=== PATIENT | female | born 1970 | race Caucasian/White ===

== ENCOUNTER 2016-05-27 08:53 | Day surgery (SDC) | payer OTHER, BC ==
[~2016-05-27 08:53] MED LIST: ALDACTONE25 MG PO; ALEVE220 MG PO; ATORVASTATIN CA40 MG PO; COLACE100 MG PO; COMPAZINE5 MG PO; COZAAR100 MG PO; DOCUSATE SODIU100 MG PO; DULCOLAX10 MG PR; EPOGEN,PRO2000 UNITS IV; FLEXERIL5 MG PO; FUROSEMIDE40 MG PO; FUROSEMIDE80 MG PO; GLUCAGEN1 MG IM/SC; HEPARIN SO5000 UNITS SC; LEVEMIR100 UNIT/2 SC; LIPITOR10 MG PO; LOPRESSOR25 MG PO; LOPRESSOR50 MG PO; LOSARTAN POTASS25 MG PO; METOLAZONE2.5 MG PO; MILK OF MAGN PO; NOVOLIN,HU100 UNITS/ SC; NOVOLIN,HU100 UNITS1 SC; NOVOLOG 10100 UNITS/ SC; NOVOLOG PE100 UNITS/ SC; OXYCODONE HCL10 MG PO; OXYCODONE HCL5 MG PO; PANTOPRAZOLE SO40 MG PO; POLYETHYLENE GL17 GM PO; PREDNISONE10 MG PO; PREDNISONE5 MG PO; PROAIR HFA8.5 GM IH; PROTONIX40 MG PO; SORE THROAT LO1 EAC3 MM; SPIRONOLACTONE25 MG PO; TRAZODONE HCL50 MG PO; TYLENOL REGULA325 MG PO; ZOFRAN4 MG PO
[2016-05-27 09:18] LABS: POINT-OF-CARE METER ID UU13113696; POINT-OF-CARE USER ID HMLCJM07
[2016-05-27 10:15] LABS: METH RESISTANT S AUREUS PCR NEGATIVE (NEGATIVE); PROBE CHECK PASS; SPECIMEN PROCESSING CONTROL PASS
[2016-05-28] MEDS ORDERED: FLEET ENEMA-AD118 ML PR (13:56)
[2016-05-28] MEDS ORDERED: HEPARIN SO5000 UNITS SC (14:27)
[2016-05-28] MEDS ORDERED: HUMULIN 70100 UNIT/2 SC (14:28)
[2016-05-28] MEDS ORDERED: NOVOLOG PE100 UNITS/ SC (14:33)
== END 2016-05-27 11:22 ==
LOC: CATH 08:53
PROVIDERS: Surgery
PROC: 02HV33Z Insertion of Infusion Device into Superior Vena Cava, Percutaneous Approach (ICD-10-PCS; principal; 2016-05-27)
PROC: 0JPT33Z Removal of Infusion Device from Trunk Subcutaneous Tissue and Fascia, Percutaneous Approach (ICD-10-PCS; principal; 2016-05-27)
DX: T85.698A Other mechanical complication of other specified internal prosthetic devices, implants and grafts, initial encounter (principal); Y83.9 Surgical procedure, unspecified as the cause of abnormal reaction of the patient, or of later complication, without mention of misadventure at the time of the procedure; N18.6 End stage renal disease
CPT/HCPCS: 82948; 87641; J0690; J1644; J2250; J3010; S0020

== ENCOUNTER 2016-05-28 08:57 | Inpatient (IN) | payer OTHER, BC ==
[~2016-05-28] VITALS: Ht 167.6 cm; Wt 130.4 kg
[2016-05-28 10:24] LABS: HEMATOCRIT 25.4 % (36.0-46.0); MCH 27.5 PG (29.0-34.0); MCHC 30.7 G/DL (30.0-36.0); MCV 89.4 FL (83-99); MEAN PLAT.VOLUME 10.2 uM^3 (9.5-12.4); RBC DIS.WIDTH-CV 15.9 % (11.8-14.6); RBC DIS.WIDTH-SD 49.6 % (39-53); RED BLOOD COUNT 2.84 M/uL (3.80-5.20)
[2016-05-28 10:31] LABS: INTER. NORMALIZED RATIO 1.1; PROTHROMBIN TIME 10.7 (9.2-11.2); PTT 38.7 (25-32)
[2016-05-28 10:38] LABS: CHLORIDE 101 mEq/L (99-109); SODIUM 136 mEq/L (136-147)
[2016-05-28 10:40] LABS: GLUCOSE 177 mg/dL (70-99)
[2016-05-28 10:41] LABS: ANION GAP 9 MEQ/L (2-14)
[2016-05-28 10:42] LABS: TOTAL BILIRUBIN 0.3 mg/dL (0.0-1.0)
[2016-05-28 10:43] LABS: TROP-I INTERPRETATION NEGATIVE; TROPONIN-I < 0.01 ng/mL (0.0-0.30)
[2016-05-28 10:44] LABS: ALKALINE PHOSPHATASE 148 IU/L (3-129); GFR ESTIMATE (CALCULATED) 15 mL/min/
[2016-05-28 10:45] LABS: UREA NITROGEN (BUN) 19 mg/dL (9-23)
[2016-05-28 10:59] LABS: BASOPHIL COUNT 0.1 K/uL (0-0.1); EOSINOPHIL COUNT 0.2 K/uL (0-0.3); HEMATOLOGY COMMENT 1 SMEAR COMPATIBLE; IMMATURE GRANULOCYTE (%) 3.4 % (0.0-0.7); LYMPHOCYTE COUNT 1.5 K/uL (1.0-2.8); MONOCYTE (%) 7.3 % (3-12); MONOCYTE COUNT 0.9 K/uL (0-0.8); NEUTROPHIL (%) 74.4 % (45-76); NEUTROPHIL COUNT 8.7 K/uL (1.8-6.4); USER ID BLP
[2016-05-28 11:05] LABS: PLATELET COUNT 213 K/uL (156-360); WHITE BLOOD COUNT 11.7 K/uL (4.1-10.2)
[2016-05-28] MEDS ORDERED: FLEET ENEMA-AD118 ML PR (13:56)
[2016-05-28] MEDS ORDERED: HEPARIN SO5000 UNITS SC (14:27)
[2016-05-28] MEDS ORDERED: HUMULIN 70100 UNIT/2 SC (14:28)
[2016-05-28] MEDS ORDERED: NOVOLOG PE100 UNITS/ SC (14:33)
[2016-05-28 20:12] VITALS: BP 118/58
[2016-05-29] VITALS (15 sets, daily range): BP systolic 110–137; BP diastolic 54–61
[2016-05-29 08:13] LABS: ANION GAP 6 MEQ/L (2-14); CHLORIDE 103 MEQ/L (99-109); GFR ESTIMATE (CALCULATED) 21 mL/min/; POTASSIUM 4.2 MEQ/L (3.7-5.4); SAMPLE HEMOLYSIS CHECK 0; SAMPLE ICTERIC CHECK 0; SAMPLE LIPEMIA CHECK 0; SODIUM 139 MEQ/L (136-147); UREA NITROGEN (BUN) 11 mg/dL (9-23)
[2016-05-29 08:16] LABS: GLUCOSE 80 mg/dL (70-99)
[2016-05-29 08:21] LABS: EOSINOPHIL (%) 2.8 % (0-5); EOSINOPHIL COUNT 0.3 K/uL (0-0.3); HEMATOCRIT 21.2 % (36.0-46.0); IMMATURE GRANULOCYTE (%) 4.3 % (0.0-0.7); IMMATURE GRANULOCYTE COUNT 0.4 K/uL; MCH 27.5 PG (29.0-34.0); MCHC 30.2 G/DL (30.0-36.0); MCV 90.4 FL (83-99); MEAN PLAT.VOLUME 10.5 uM^3 (9.5-12.4); MONOCYTE (%) 10.9 % (3-12); NEUTROPHIL (%) 70.1 % (45-76); NEUTROPHIL COUNT 6.2 K/uL (1.8-6.4); NRBC (%) 0.3 /100 WBC (0-0); PLATELET COUNT 196 K/uL (156-360); RBC DIS.WIDTH-CV 16.9 % (11.8-14.6); RBC DIS.WIDTH-SD 54.6 % (39-53); RED BLOOD COUNT 2.33 M/uL (3.80-5.20); WHITE BLOOD COUNT 8.9 K/uL (4.1-10.2)
[2016-05-29 08:25] LABS: HEMATOLOGY COMMENT 1 SMEAR COMPATIBLE; PLAT.SUFFICIENCY ADEQUATE
[2016-05-29 12:09] LABS: METH RESISTANT S AUREUS PCR NEGATIVE (NEGATIVE); PROBE CHECK PASS; SPECIMEN PROCESSING CONTROL PASS
[2016-05-29 13:24] LABS: INFLUENZA A VIRAL ANTIGEN NEGATIVE; INFLUENZA B VIRAL ANTIGEN NEGATIVE
[2016-05-30 03:33] VITALS: BP 129/60
[2016-05-30 06:06] LABS: HEMATOCRIT 27.6 % (36.0-46.0); MCHC 30.8 G/DL (30.0-36.0); MCV 90.8 FL (83-99); MEAN PLAT.VOLUME 10.9 uM^3 (9.5-12.4); PLATELET COUNT 228 K/uL (156-360); RBC DIS.WIDTH-CV 16.4 % (11.8-14.6); RBC DIS.WIDTH-SD 53.4 % (39-53); WHITE BLOOD COUNT 10.2 K/uL (4.1-10.2)
[2016-05-30 06:12] LABS: RED BLOOD COUNT 3.04 M/uL (3.80-5.20)
[2016-05-30 06:24] LABS: ANION GAP 7 MEQ/L (2-14); CHLORIDE 103 MEQ/L (99-109); GFR ESTIMATE (CALCULATED) 15 mL/min/; GLUCOSE 121 mg/dL (70-99); SAMPLE HEMOLYSIS CHECK 0; SAMPLE ICTERIC CHECK 0; SAMPLE LIPEMIA CHECK 0; SODIUM 137 MEQ/L (136-147); UREA NITROGEN (BUN) 19 mg/dL (9-23)
[2016-05-30 07:07] LABS: EOSINOPHIL (%) 2.9 % (0-5); EOSINOPHIL COUNT 0.3 K/uL (0-0.3); IMMATURE GRANULOCYTE (%) 3.5 % (0.0-0.7); IMMATURE GRANULOCYTE COUNT 0.4 K/uL; MONOCYTE (%) 7.1 % (3-12); MONOCYTE COUNT 0.7 K/uL (0-0.8); NEUTROPHIL (%) 76.8 % (45-76); NEUTROPHIL COUNT 7.9 K/uL (1.8-6.4); NRBC (%) 0.2 /100 WBC (0-0)
[2016-05-30 09:21] LABS: HEMATOLOGY COMMENT 1 SMEAR COMPATIBLE; USER ID SDF
[2016-05-30 12:30] VITALS: BP 142/65
[2016-05-30 16:30] VITALS: BP 140/62
[2016-05-30 20:02] VITALS: BP 126/58
[2016-05-31] VITALS (7 sets, daily range): BP systolic 119–155; BP diastolic 57–71
[2016-05-31 08:10] LABS: INTERNAL CONTROL VALID? YES
[2016-06-01 04:00] VITALS: BP 148/71
[2016-06-01 07:29] VITALS: BP 155/71
[2016-06-01 11:17] LABS: HEMATOCRIT 31.5 % (36.0-46.0); MCH 27.8 PG (29.0-34.0); MCHC 30.8 G/DL (30.0-36.0); MCV 90.3 FL (83-99); MEAN PLAT.VOLUME 9.9 uM^3 (9.5-12.4); PLATELET COUNT 258 K/uL (156-360); RBC DIS.WIDTH-CV 16.6 % (11.8-14.6); RBC DIS.WIDTH-SD 54.1 % (39-53); RED BLOOD COUNT 3.49 M/uL (3.80-5.20); WHITE BLOOD COUNT 12.4 K/uL (4.1-10.2)
[2016-06-01 11:26] VITALS: BP 150/66
[2016-06-01 11:57] LABS: ALKALINE PHOSPHATASE 138 IU/L (3-129); ANION GAP 9 MEQ/L (2-14); CHLORIDE 101 MEQ/L (99-109); GLUCOSE 123 mg/dL (70-99); POTASSIUM 4.4 MEQ/L (3.7-5.4); SAMPLE HEMOLYSIS CHECK 0; SAMPLE ICTERIC CHECK 0; SAMPLE LIPEMIA CHECK 0; SODIUM 137 MEQ/L (136-147); TOTAL BILIRUBIN 0.3 MG/DL (0.0-1.0)
[2016-06-01 15:32] VITALS: BP 156/68
[2016-06-01 19:00] VITALS: BP 145/65
[2016-06-01 19:56] LABS: GFR ESTIMATE (CALCULATED) 17 mL/min/
[2016-06-01 20:05] LABS: UREA NITROGEN (BUN) 34 mg/dL (9-23)
[2016-06-01 23:02] VITALS: BP 166/71
[2016-06-02 03:20] VITALS: BP 170/74
[2016-06-02 07:36] LABS: HEMATOCRIT 31.8 % (36.0-46.0); MCH 27.3 PG (29.0-34.0); MCHC 30.2 G/DL (30.0-36.0); MCV 90.3 FL (83-99); MEAN PLAT.VOLUME 10.3 uM^3 (9.5-12.4); PLATELET COUNT 273 K/uL (156-360); RBC DIS.WIDTH-CV 16.6 % (11.8-14.6); RBC DIS.WIDTH-SD 53.8 % (39-53); RED BLOOD COUNT 3.52 M/uL (3.80-5.20); WHITE BLOOD COUNT 9.2 K/uL (4.1-10.2)
[2016-06-02 08:06] LABS: ANION GAP 10 MEQ/L (2-14); CHLORIDE 103 MEQ/L (99-109); GFR ESTIMATE (CALCULATED) 16 mL/min/; GLUCOSE 160 mg/dL (70-99); POTASSIUM 5.2 MEQ/L (3.7-5.4); SAMPLE HEMOLYSIS CHECK 0; SAMPLE ICTERIC CHECK 0; SAMPLE LIPEMIA CHECK 0; SODIUM 139 MEQ/L (136-147); UREA NITROGEN (BUN) 40 mg/dL (9-23)
[2016-06-02 08:16] LABS: EOSINOPHIL (%) 2.2 % (0-5); EOSINOPHIL COUNT 0.2 K/uL (0-0.3); IMMATURE GRANULOCYTE (%) 4.4 % (0.0-0.7); IMMATURE GRANULOCYTE COUNT 0.4 K/uL; LYMPHOCYTE COUNT 1.1 K/uL (1.0-2.8); MONOCYTE (%) 6.9 % (3-12); MONOCYTE COUNT 0.6 K/uL (0-0.8); NEUTROPHIL (%) 73.9 % (45-76); NEUTROPHIL COUNT 6.8 K/uL (1.8-6.4)
[2016-06-02 08:24] LABS: HEMATOLOGY COMMENT 1 SMEAR COMPATIBLE; USER ID CL
[2016-06-02 16:00] VITALS: BP 135/67
[2016-06-02 20:00] VITALS: BP 131/60
[2016-06-02 23:15] VITALS: BP 167/67
[2016-06-03 04:20] VITALS: BP 135/73
[2016-06-03 08:06] VITALS: BP 141/69
[2016-06-03 12:24] VITALS: BP 151/71
[2016-06-03] MEDS ORDERED: LEVOFLOXACIN500 MG PO (13:24)
[2016-06-03] MEDS ORDERED: DUONEB 2.5-0.5 M3 ML AEROSOL (13:24)
[2016-06-03] MEDS ORDERED: PREDNISONE10 MG PO (13:30)
[2016-06-03 17:03] VITALS: BP 161/58
== END 2016-06-03 17:34 | DRG 193 ==
LOC: EME → EDBD 08:57 → EME 08:57 → 2EAST 12:25 → EDOF 12:25 → 2EAST 18:37
PROVIDERS: Emergency Medicine; Hospitalist; Internal Medicine; Internal Medicine Nephrology
PROC: 5A1D60Z (ICD-10-PCS; 2016-05-28)
PROC: 5A09357 Assistance with Respiratory Ventilation, Less than 24 Consecutive Hours, Continuous Positive Airway Pressure (ICD-10-PCS; principal; 2016-05-29)
PROC: 30233N1 Transfusion of Nonautologous Red Blood Cells into Peripheral Vein, Percutaneous Approach (ICD-10-PCS; 2016-05-29)
DX: J15.9 Unspecified bacterial pneumonia (principal); Y95 Nosocomial condition; J96.21 Acute and chronic respiratory failure with hypoxia; I13.2 Hypertensive heart and chronic kidney disease with heart failure and with stage 5 chronic kidney disease, or end stage renal disease; E11.22 Type 2 diabetes mellitus with diabetic chronic kidney disease; N18.6 End stage renal disease; I50.9 Heart failure, unspecified; Z99.2 Dependence on renal dialysis; J45.31 Mild persistent asthma with (acute) exacerbation; D63.1 Anemia in chronic kidney disease; E66.01 Morbid (severe) obesity due to excess calories; Z68.42 Body mass index [BMI] 45.0-49.9, adult; E11.65 Type 2 diabetes mellitus with hyperglycemia; G47.33 Obstructive sleep apnea (adult) (pediatric); R59.0 Localized enlarged lymph nodes; Z91.19 Patient's noncompliance with other medical treatment and regimen
CPT/HCPCS: 71010; 71020; 71275; 80048; 80053; 82948; 84484; 85025; 85025 91; 85027; 85610; 85730; 86850; 86900; 86901; 86920; 87070; 87106; 87205; 87449; 87502; 87641; 93005; 94640; 94640 76; 94644; 94799; 97530 GO; 99202; 99281; 99285; J0690; J0692; J0881; J1644; J1815; J1940; J2250; J3010; J3370; J7050; J7512; P9016; S0020

== ENCOUNTER 2016-07-03 09:52 | Day surgery (SDC) | payer OTHER, BC ==
[~2016-07-03] VITALS: Ht 160 cm; Wt 136.2 kg
[~2016-07-03 09:52] MED LIST changes: +DUONEB 2.5-0.5 M3 ML AEROSOL; +FLEET ENEMA-AD118 ML PR; +FLEET MINERAL133 ML PR; +HUMULIN 70100 UNIT/2 SC; +HUMULIN N100 UNITS/ SC; +LEVOFLOXACIN500 MG PO; +MIRALAX17 GM PO; +MULTIVITAMINS1 EA10 PO; +NOVOLIN N100 UNITS/ SC; +PRILOSEC20 MG PO; +PROMETHAZINE HC25 M1 PO; +SENNA-S TABLET1 EACH PO; +TOPROL XL50 MG PO; +ZOLOFT50 MG PO
[2016-07-03 10:29] LABS: HEMATOCRIT 32.7 % (36.0-46.0); MCH 27.4 PG (29.0-34.0); MCHC 30.3 G/DL (30.0-36.0); MCV 90.6 FL (83-99); MEAN PLAT.VOLUME 12.1 uM^3 (9.5-12.4); RBC DIS.WIDTH-CV 16.3 % (11.8-14.6); RBC DIS.WIDTH-SD 53.3 % (39-53); RED BLOOD COUNT 3.61 M/uL (3.80-5.20); WHITE BLOOD COUNT 5.4 K/uL (4.1-10.2)
[2016-07-03 10:31] VITALS: BP 118/55
[2016-07-03 10:37] LABS: PLATELET COUNT 88 K/uL (156-360)
[2016-07-03 11:10] LABS: ANION GAP 7 MEQ/L (2-14); CHLORIDE 103 MEQ/L (99-109); POTASSIUM 4.2 MEQ/L (3.7-5.4); SAMPLE HEMOLYSIS CHECK 0; SAMPLE ICTERIC CHECK 0; SAMPLE LIPEMIA CHECK 0; SODIUM 140 MEQ/L (136-147)
[2016-07-03 11:15] LABS: GFR ESTIMATE (CALCULATED) 32 mL/min/; GLUCOSE 213 mg/dL (70-99); UREA NITROGEN (BUN) 23 mg/dL (9-23)
[2016-07-03 11:39] LABS: METH RESISTANT S AUREUS PCR NEGATIVE (NEGATIVE)
[2016-07-03 11:45] LABS: PROBE CHECK PASS; SPECIMEN PROCESSING CONTROL PASS
[2016-07-03 16:22] LABS: POINT-OF-CARE METER ID UU13113675
[2016-07-03 16:54] VITALS: BP 138/67
[2016-07-03 17:17] VITALS: BP 141/64
== END 2016-07-03 17:30 ==
LOC: SDC 09:52
PROVIDERS: Surgery
PROC: 03180ZD Bypass Left Brachial Artery to Upper Arm Vein, Open Approach (ICD-10-PCS; principal; 2016-07-03)
DX: N18.6 End stage renal disease (principal); Z99.2 Dependence on renal dialysis; I12.0 Hypertensive chronic kidney disease with stage 5 chronic kidney disease or end stage renal disease; E11.22 Type 2 diabetes mellitus with diabetic chronic kidney disease; J45.909 Unspecified asthma, uncomplicated; I50.9 Heart failure, unspecified; K21.9 Gastro-esophageal reflux disease without esophagitis
CPT/HCPCS: 80048; 82948; 85027; 87641; J1644; J2250; J2720; J3010

== ENCOUNTER 2016-07-16 19:09 | Inpatient (IN) | payer OTHER, BC ==
[~2016-07-16] VITALS: Ht 160 cm; Wt 115.9 kg
[2016-07-16 19:39] LABS: CARBON DIOXIDE (BICARBONATE) 33.3 MEQ/L (20-31)
[2016-07-16 19:41] LABS: EOSINOPHIL (%) 0.3 % (0-5); HEMATOCRIT 33.5 % (36.0-46.0); IMMATURE GRANULOCYTE (%) 0.7 % (0.0-0.7); IMMATURE GRANULOCYTE COUNT 0.8 K/uL; LYMPHOCYTE COUNT 0.6 K/uL (1.0-2.8); MCH 28.1 PG (29.0-34.0); MCV 90.5 FL (83-99); MEAN PLAT.VOLUME 11.1 uM^3 (9.5-12.4); MONOCYTE (%) 3.4 % (3-12); MONOCYTE COUNT 0.4 K/uL (0-0.8); NEUTROPHIL (%) 89.9 % (45-76); NEUTROPHIL COUNT 9.8 K/uL (1.8-6.4); PLATELET COUNT 181 K/uL (156-360); RBC DIS.WIDTH-SD 51.6 % (39-53); WHITE BLOOD COUNT 10.9 K/uL (4.1-10.2)
[2016-07-16 19:49] LABS: CHLORIDE 103 mEq/L (99-109); POTASSIUM 4.9 mEq/L (3.7-5.4); SODIUM 142 mEq/L (136-147)
[2016-07-16 19:53] LABS: TOTAL BILIRUBIN 0.5 mg/dL (0.0-1.0)
[2016-07-16 19:56] LABS: ALKALINE PHOSPHATASE 207 IU/L (3-129); GFR ESTIMATE (CALCULATED) 16 mL/min/; UREA NITROGEN (BUN) 34 mg/dL (9-23)
[2016-07-16 20:03] LABS: TROP-I INTERPRETATION NEGATIVE; TROPONIN-I 0.01 ng/mL (0.0-0.30)
[2016-07-16 20:10] LABS: D-DIMER ELISA 3.17 mg/L FEU (< 0.57)
[2016-07-16 20:26] LABS: GLUCOSE 259 mg/dL (70-99)
[2016-07-16 20:28] LABS: ANION GAP 13 MEQ/L (2-14)
[2016-07-16] MEDS ORDERED: LOPRESSOR50 MG PO (22:54)
[2016-07-16] MEDS ORDERED: PROAIR HFA8.5 GM IH (22:58)
[2016-07-16] MEDS ORDERED: ARTIFICIAL TEAR1510 BOTH EYES (22:59)
[2016-07-17] VITALS (19 sets, daily range): BP systolic 89–174; BP diastolic 47–76
[2016-07-17 00:48] LABS: BASE EXCESS -0.4 mEq/L (-3 to +3); BICARBONATE 26.6 mEq/L (22-26); CARBOXY HGB 2.5 % (0-5); METHEMOGLOBIN 1.5 % (0-1.5); PCO2 54 mm Hg (35-45); PO2 53 mm Hg (80-100)
[2016-07-17 00:49] LABS: COMMENTS - BLOOD GASES C+A+; DEVICE HHFNC; FI02 100 %; O2 FLOW 50 L/MIN; SITE RR; TOTAL RESP RATE 20 resp/min
[2016-07-17 01:31] LABS: METH RESISTANT S AUREUS PCR NEGATIVE (NEGATIVE)
[2016-07-17 01:33] LABS: PROBE CHECK PASS; SPECIMEN PROCESSING CONTROL PASS
[2016-07-17 01:56] LABS: POINT-OF-CARE METER ID UU13113731
[2016-07-17 02:01] LABS: INFLUENZA A VIRAL ANTIGEN NEGATIVE; INFLUENZA B VIRAL ANTIGEN NEGATIVE
[2016-07-17 05:47] LABS: HEMATOCRIT 32.5 % (36.0-46.0); MCHC 29.5 G/DL (30.0-36.0); MCV 91.3 FL (83-99); MEAN PLAT.VOLUME 11.8 uM^3 (9.5-12.4); NRBC (%) 0.2 /100 WBC (0-0); PLATELET COUNT 210 K/uL (156-360); RBC DIS.WIDTH-CV 16.2 % (11.8-14.6); RBC DIS.WIDTH-SD 53.5 % (39-53); RED BLOOD COUNT 3.56 M/uL (3.80-5.20); WHITE BLOOD COUNT 12.2 K/uL (4.1-10.2)
[2016-07-17 06:11] LABS: ANION GAP 12 MEQ/L (2-14); CHLORIDE 100 MEQ/L (99-109); GFR ESTIMATE (CALCULATED) 15 mL/min/; GLUCOSE 299 mg/dL (70-99); MAGNESIUM 2.1 mg/dl (1.3-2.7); POTASSIUM 5.5 MEQ/L (3.7-5.4); SAMPLE HEMOLYSIS CHECK 0; SAMPLE ICTERIC CHECK 0; SAMPLE LIPEMIA CHECK 0; SODIUM 139 MEQ/L (136-147); UREA NITROGEN (BUN) 40 mg/dL (9-23)
[2016-07-17 06:12] LABS: POINT-OF-CARE METER ID UU13113748
[2016-07-17 06:26] LABS: EOSINOPHIL (%) 0.1 % (0-5); IMMATURE GRANULOCYTE (%) 1.1 % (0.0-0.7); IMMATURE GRANULOCYTE COUNT 0.1 K/uL; LYMPHOCYTE COUNT 0.4 K/uL (1.0-2.8); MONOCYTE (%) 2.1 % (3-12); MONOCYTE COUNT 0.3 K/uL (0-0.8); NEUTROPHIL (%) 93.5 % (45-76); NEUTROPHIL COUNT 11.4 K/uL (1.8-6.4)
[2016-07-17 09:32] LABS: POINT-OF-CARE METER ID UU14174217
[2016-07-17 14:57] LABS: POINT-OF-CARE METER ID UU14174217
[2016-07-17 17:48] LABS: POINT-OF-CARE METER ID UU14174217
[2016-07-17 22:16] LABS: POINT-OF-CARE METER ID UU13113748; POINT-OF-CARE USER ID RADDRS44
[2016-07-18] VITALS (25 sets, daily range): BP systolic 75–145; BP diastolic 45–69
[2016-07-18 03:00] LABS: POINT-OF-CARE METER ID UU14174217; POINT-OF-CARE USER ID RADDRS44
[2016-07-18 06:00] LABS: HEMATOCRIT 29.1 % (36.0-46.0); MCH 28.3 PG (29.0-34.0); MCHC 31.3 G/DL (30.0-36.0); MCV 90.4 FL (83-99); MEAN PLAT.VOLUME 11.8 uM^3 (9.5-12.4); NRBC (%) 0.2 /100 WBC (0-0); PLATELET COUNT 211 K/uL (156-360); RBC DIS.WIDTH-CV 16.7 % (11.8-14.6); RBC DIS.WIDTH-SD 54.1 % (39-53); RED BLOOD COUNT 3.22 M/uL (3.80-5.20); WHITE BLOOD COUNT 9.3 K/uL (4.1-10.2)
[2016-07-18 06:09] LABS: POINT-OF-CARE METER ID UU14174217
[2016-07-18 06:38] LABS: ALKALINE PHOSPHATASE 154 IU/L (3-129); GLUCOSE 175 mg/dL (70-99); SAMPLE HEMOLYSIS CHECK 0; SAMPLE ICTERIC CHECK 0; SAMPLE LIPEMIA CHECK 0; TOTAL BILIRUBIN 0.5 MG/DL (0.0-1.0); UREA NITROGEN (BUN) 23 mg/dL (9-23)
[2016-07-18 06:44] LABS: GFR ESTIMATE (CALCULATED) 21 mL/min/
[2016-07-18 06:45] LABS: SODIUM 136 MEQ/L (136-147)
[2016-07-18 06:53] LABS: ANION GAP 10 MEQ/L (2-14); CHLORIDE 98 MEQ/L (99-109)
[2016-07-18 06:54] LABS: EOSINOPHIL (%) 1.8 % (0-5); EOSINOPHIL COUNT 0.2 K/uL (0-0.3); IMMATURE GRANULOCYTE COUNT 0.1 K/uL; LYMPHOCYTE COUNT 0.9 K/uL (1.0-2.8); MONOCYTE (%) 8.6 % (3-12); MONOCYTE COUNT 0.8 K/uL (0-0.8); NEUTROPHIL (%) 79.2 % (45-76); NEUTROPHIL COUNT 7.4 K/uL (1.8-6.4); POTASSIUM 3.9 MEQ/L (3.7-5.4)
[2016-07-18 09:34] LABS: POINT-OF-CARE METER ID UU14174217
[2016-07-18 18:05] LABS: POINT-OF-CARE METER ID UU14174217
[2016-07-18 22:19] LABS: POINT-OF-CARE METER ID UU14174217; POINT-OF-CARE USER ID RADDRS44
[2016-07-19] VITALS (20 sets, daily range): BP systolic 107–155; BP diastolic 52–77
[2016-07-19 08:18] LABS: POINT-OF-CARE METER ID UU14174217
[2016-07-19 12:29] LABS: POINT-OF-CARE METER ID UU13113748
[2016-07-19 16:19] LABS: POINT-OF-CARE METER ID UU13113748
[2016-07-20] VITALS (22 sets, daily range): BP systolic 122–151; BP diastolic 57–118
[2016-07-20 05:15] LABS: EOSINOPHIL (%) 0.1 % (0-5); HEMATOCRIT 30.4 % (36.0-46.0); IMMATURE GRANULOCYTE (%) 1.5 % (0.0-0.7); IMMATURE GRANULOCYTE COUNT 0.1 K/uL; LYMPHOCYTE COUNT 0.5 K/uL (1.0-2.8); MCH 26.5 PG (29.0-34.0); MCHC 30.3 G/DL (30.0-36.0); MCV 87.6 FL (83-99); MEAN PLAT.VOLUME 11.2 uM^3 (9.5-12.4); MONOCYTE (%) 3.3 % (3-12); MONOCYTE COUNT 0.3 K/uL (0-0.8); NEUTROPHIL (%) 88.9 % (45-76); NEUTROPHIL COUNT 7.2 K/uL (1.8-6.4); PLATELET COUNT 231 K/uL (156-360); RBC DIS.WIDTH-CV 15.9 % (11.8-14.6); RBC DIS.WIDTH-SD 50.9 % (39-53); RED BLOOD COUNT 3.47 M/uL (3.80-5.20); WHITE BLOOD COUNT 8.1 K/uL (4.1-10.2)
[2016-07-20 06:15] LABS: ANION GAP 11 MEQ/L (2-14); CHLORIDE 97 MEQ/L (99-109); GFR ESTIMATE (CALCULATED) 14 mL/min/; POTASSIUM 4.5 MEQ/L (3.7-5.4); SAMPLE HEMOLYSIS CHECK 0; SAMPLE ICTERIC CHECK 0; SAMPLE LIPEMIA CHECK 0; SODIUM 132 MEQ/L (136-147); UREA NITROGEN (BUN) 31 mg/dL (9-23)
[2016-07-20 06:19] LABS: GLUCOSE 416 mg/dL (70-99)
[2016-07-20 12:17] LABS: POINT-OF-CARE METER ID UU14174217
[2016-07-20 12:17] LABS: POINT-OF-CARE METER ID UU13113803
[2016-07-20 12:21] LABS: POINT-OF-CARE METER ID UU13113748; POINT-OF-CARE USER ID RADDRS44
[2016-07-20 12:38] LABS: Estimated Average Glucose 126 mg/dL (70-123)
[2016-07-20 13:05] LABS: POINT-OF-CARE METER ID UU13113731
[2016-07-20 13:17] LABS: ANION GAP 10 MEQ/L (2-14); CHLORIDE 96 MEQ/L (99-109); POTASSIUM 3.6 MEQ/L (3.7-5.4); SAMPLE HEMOLYSIS CHECK 0; SAMPLE ICTERIC CHECK 0; SAMPLE LIPEMIA CHECK 0; SODIUM 132 MEQ/L (136-147)
[2016-07-20 13:56] LABS: GFR ESTIMATE (CALCULATED) 13 mL/min/; UREA NITROGEN (BUN) 36 mg/dL (9-23)
[2016-07-20 14:00] LABS: GLUCOSE 417 mg/dL (70-99)
[2016-07-20 14:08] LABS: POINT-OF-CARE METER ID UU13113731
[2016-07-20 15:10] LABS: POINT-OF-CARE METER ID UU13113731
[2016-07-20 16:07] LABS: POINT-OF-CARE METER ID UU13113731
[2016-07-20 17:20] LABS: POINT-OF-CARE METER ID UU13113731
[2016-07-20 17:31] LABS: ANION GAP 14 MEQ/L (2-14); CHLORIDE 97 MEQ/L (99-109); GFR ESTIMATE (CALCULATED) 13 mL/min/; GLUCOSE 271 mg/dL (70-99); POTASSIUM 3.8 MEQ/L (3.7-5.4); SAMPLE HEMOLYSIS CHECK 0; SAMPLE ICTERIC CHECK 0; SAMPLE LIPEMIA CHECK 0; SODIUM 134 MEQ/L (136-147); UREA NITROGEN (BUN) 37 mg/dL (9-23)
[2016-07-20 18:10] LABS: POINT-OF-CARE METER ID UU13113731
[2016-07-20 19:03] LABS: POINT-OF-CARE METER ID UU14174217
[2016-07-20 20:19] LABS: POINT-OF-CARE METER ID UU14174217
[2016-07-20 20:59] LABS: ANION GAP 16 MEQ/L (2-14); CHLORIDE 99 MEQ/L (99-109); GFR ESTIMATE (CALCULATED) 12 mL/min/; GLUCOSE 220 mg/dL (70-99); POTASSIUM 3.8 MEQ/L (3.7-5.4); SAMPLE HEMOLYSIS CHECK 0; SAMPLE ICTERIC CHECK 0; SAMPLE LIPEMIA CHECK 0; SODIUM 136 MEQ/L (136-147); UREA NITROGEN (BUN) 40 mg/dL (9-23)
[2016-07-20 21:27] LABS: POINT-OF-CARE METER ID UU14174217
[2016-07-20 22:09] LABS: POINT-OF-CARE METER ID UU14174217
[2016-07-20 23:16] LABS: POINT-OF-CARE METER ID UU14174217
[2016-07-20 23:57] LABS: POINT-OF-CARE METER ID UU14174217; POINT-OF-CARE USER ID 609231305
[2016-07-21] VITALS (13 sets, daily range): BP systolic 90–161; BP diastolic 51–88
[2016-07-21 00:40] LABS: CHLORIDE 103 mEq/L (99-109); POTASSIUM 4.1 mEq/L (3.7-5.4); SODIUM 140 mEq/L (136-147)
[2016-07-21 00:42] LABS: GLUCOSE 151 mg/dL (70-99)
[2016-07-21 00:43] LABS: ANION GAP 14 MEQ/L (2-14)
[2016-07-21 00:45] LABS: GFR ESTIMATE (CALCULATED) 10 mL/min/
[2016-07-21 00:46] LABS: UREA NITROGEN (BUN) 44 mg/dL (9-23)
[2016-07-21 01:19] LABS: POINT-OF-CARE METER ID UU14162636; POINT-OF-CARE USER ID 609231305
[2016-07-21 02:19] LABS: POINT-OF-CARE METER ID UU14162636; POINT-OF-CARE USER ID 609231305
[2016-07-21 03:28] LABS: POINT-OF-CARE METER ID UU14162636; POINT-OF-CARE USER ID PHATLC
[2016-07-21 04:30] LABS: POINT-OF-CARE METER ID UU14162636
[2016-07-21 04:56] LABS: CHLORIDE 103 mEq/L (99-109); POTASSIUM 4.3 mEq/L (3.7-5.4); SODIUM 139 mEq/L (136-147)
[2016-07-21 04:58] LABS: GLUCOSE 131 mg/dL (70-99)
[2016-07-21 04:59] LABS: ANION GAP 13 MEQ/L (2-14)
[2016-07-21 05:02] LABS: GFR ESTIMATE (CALCULATED) 10 mL/min/
[2016-07-21 05:03] LABS: UREA NITROGEN (BUN) 46 mg/dL (9-23)
[2016-07-21 05:51] LABS: POINT-OF-CARE METER ID UU14162636
[2016-07-21 08:07] LABS: POINT-OF-CARE METER ID UU14174217
[2016-07-21 09:35] LABS: NRBC (%) 0.2 /100 WBC (0-0)
[2016-07-21 09:41] LABS: HEMATOCRIT 30.7 % (36.0-46.0); MCH 27.8 PG (29.0-34.0); MCHC 31.9 G/DL (30.0-36.0); MCV 87.2 FL (83-99); MEAN PLAT.VOLUME 11.2 uM^3 (9.5-12.4); PLATELET COUNT 286 K/uL (156-360); RBC DIS.WIDTH-SD 50.6 % (39-53); RED BLOOD COUNT 3.52 M/uL (3.80-5.20)
[2016-07-21 09:43] LABS: WHITE BLOOD COUNT 12.3 K/uL (4.1-10.2)
[2016-07-21 12:08] LABS: POINT-OF-CARE METER ID UU14174217
[2016-07-21 12:41] LABS: HBSG INDEX 0.21
[2016-07-21 16:11] LABS: POINT-OF-CARE METER ID UU14174217
[2016-07-21 18:10] LABS: POINT-OF-CARE METER ID UU14162636
[2016-07-21 21:50] LABS: POINT-OF-CARE METER ID UU14174217; POINT-OF-CARE USER ID PHATLC
[2016-07-22] VITALS (9 sets, daily range): BP systolic 92–149; BP diastolic 51–67
[2016-07-22 17:02] LABS: POINT-OF-CARE METER ID UU14162508
[2016-07-23 03:51] VITALS: BP 142/64
[2016-07-23 07:07] LABS: ANION GAP 13 MEQ/L (2-14); CHLORIDE 99 MEQ/L (99-109); GFR ESTIMATE (CALCULATED) 11 mL/min/; GLUCOSE 195 mg/dL (70-99); POTASSIUM 3.9 MEQ/L (3.7-5.4); SAMPLE HEMOLYSIS CHECK 0; SAMPLE ICTERIC CHECK 0; SAMPLE LIPEMIA CHECK 0; SODIUM 138 MEQ/L (136-147); UREA NITROGEN (BUN) 51 mg/dL (9-23)
[2016-07-23 07:40] LABS: HEMATOCRIT 35.4 % (36.0-46.0); MCH 27.8 PG (29.0-34.0); MCHC 31.9 G/DL (30.0-36.0); MEAN PLAT.VOLUME 10.3 uM^3 (9.5-12.4); PLATELET COUNT 249 K/uL (156-360); RBC DIS.WIDTH-CV 16.3 % (11.8-14.6); RBC DIS.WIDTH-SD 51.6 % (39-53); RED BLOOD COUNT 4.07 M/uL (3.80-5.20); WHITE BLOOD COUNT 12.6 K/uL (4.1-10.2)
[2016-07-23 08:09] VITALS: BP 150/65
[2016-07-23 12:31] VITALS: BP 118/62
[2016-07-23 12:38] LABS: POINT-OF-CARE METER ID UU14162508
[2016-07-23 15:22] VITALS: BP 130/63
[2016-07-23 16:34] LABS: POINT-OF-CARE METER ID UU14162508
[2016-07-23 20:00] VITALS: BP 131/76
[2016-07-23 21:33] LABS: POINT-OF-CARE METER ID UU14162508
[2016-07-23 23:40] VITALS: BP 110/56
[2016-07-24 04:20] VITALS: BP 118/57
[2016-07-24 07:00] LABS: POINT-OF-CARE METER ID UU14162508
[2016-07-24 07:58] VITALS: BP 142/56
[2016-07-24] MEDS ORDERED: NOVOLIN N100 UNITS/ SC (11:09)
[2016-07-24] MEDS ORDERED: AUGMENTIN500 MG PO (11:11)
[2016-07-24 11:57] LABS: POINT-OF-CARE METER ID UU14162508
[2016-07-24 12:28] VITALS: BP 139/67
== END 2016-07-24 13:16 | disposition home health service (06) | DRG 189 ==
LOC: EME 19:09 → 4WEST 22:24 → EDOF 22:24 → 4WEST 23:49 → 2EAST 07-22 16:41
PROVIDERS: Emergency Medicine; Hospitalist; Internal Medicine; Internal Medicine Nephrology; Obstetrics & Gynecology; Specialist
PROC: 5A1D60Z (ICD-10-PCS; principal; 2016-07-17)
DX: J96.01 Acute respiratory failure with hypoxia (principal); N18.6 End stage renal disease; J15.9 Unspecified bacterial pneumonia; J90 Pleural effusion, not elsewhere classified; E87.2 Acidosis; J44.0 Chronic obstructive pulmonary disease with (acute) lower respiratory infection; I12.0 Hypertensive chronic kidney disease with stage 5 chronic kidney disease or end stage renal disease; E11.65 Type 2 diabetes mellitus with hyperglycemia; E11.22 Type 2 diabetes mellitus with diabetic chronic kidney disease; Z99.2 Dependence on renal dialysis; Z99.81 Dependence on supplemental oxygen; E11.40 Type 2 diabetes mellitus with diabetic neuropathy, unspecified; J45.909 Unspecified asthma, uncomplicated; E66.01 Morbid (severe) obesity due to excess calories; D63.1 Anemia in chronic kidney disease; I13.0 Hypertensive heart and chronic kidney disease with heart failure and stage 1 through stage 4 chronic kidney disease, or unspecified chronic kidney disease; I50.33 Acute on chronic diastolic (congestive) heart failure
CPT/HCPCS: 36600; 71010; 71020; 78582; 80048; 80048 91; 80053; 80202; 82040; 82803; 82948; 83036; 83605; 83735; 83880; 84100; 84484; 85025; 85027; 85379; 87040; 87070; 87205; 87340; 87502; 87641; 93005; 93970; 94002; 94010; 94640; 94640 76; 94667; 94668; 94760; 94799; 97530 GO; 97530 GP; 99202; 99281; 99285; A9540; A9567; J1644; J1815; J1940; J2405; J2543; J2765; J2920; J2930; J3370; J7050; J7644

== ENCOUNTER 2016-09-18 11:55 | Day surgery (SDC) | payer OTHER ==
[~2016-09-18] VITALS: Ht 157.5 cm; Wt 115.2 kg
[~2016-09-18 11:55] MED LIST changes: +ARTIFICIAL TEAR1510 BOTH EYES; +AUGMENTIN500 MG PO; +DUONEB 2.5-0.5 M3 ML PEP; +LIPITOR40 MG PO; +OXYCODONE HCL E10 MG PO; +ZANTAC150 MG PO; +[UNRECOGNIZED DRUG - OTHER] PO
[2016-09-18 13:04] LABS: POINT-OF-CARE METER ID UU13113696
[2016-09-18 14:16] LABS: METH RESISTANT S AUREUS PCR NEGATIVE (NEGATIVE)
[2016-09-18 14:18] LABS: PROBE CHECK PASS; SPECIMEN PROCESSING CONTROL PASS
== END 2016-09-18 14:30 | disposition home or self-care (01) ==
LOC: CATH 11:55
PROVIDERS: Surgery
PROC: 057Y3ZZ Dilation of Upper Vein, Percutaneous Approach (ICD-10-PCS; principal; 2016-09-18)
DX: T82.858A Stenosis of other vascular prosthetic devices, implants and grafts, initial encounter (principal); Y83.2 Surgical operation with anastomosis, bypass or graft as the cause of abnormal reaction of the patient, or of later complication, without mention of misadventure at the time of the procedure; I12.0 Hypertensive chronic kidney disease with stage 5 chronic kidney disease or end stage renal disease; E11.22 Type 2 diabetes mellitus with diabetic chronic kidney disease; N18.6 End stage renal disease; Z99.2 Dependence on renal dialysis; H54.8 Legal blindness, as defined in USA; Z88.9 Allergy status to unspecified drugs, medicaments and biological substances; D63.1 Anemia in chronic kidney disease; Z79.4 Long term (current) use of insulin
CPT/HCPCS: 82948; 87641; C1725; C1769; C1894; J0583; J1644; J2250; J3010; J7050

== ENCOUNTER 2016-12-02 08:07 | Day surgery (SDC) | payer OTHER ==
[~2016-12-02] VITALS: Ht 161.3 cm; Wt 128.0 kg
[~2016-12-02 08:07] MED LIST changes: +GABAPENTIN300 MG PO; +NOVOLOG MI100 UNIT/4 SC; +OMEPRAZOLE20 M2 PO; +RENVELA800 MG PO
[2016-12-02 09:05] LABS: POINT-OF-CARE METER ID UU13113696
[2016-12-02 10:15] LABS: METH RESISTANT S AUREUS PCR NEGATIVE (NEGATIVE); PROBE CHECK PASS; SPECIMEN PROCESSING CONTROL PASS
== END 2016-12-02 11:07 | disposition home or self-care (01) ==
LOC: CATH 08:07
PROVIDERS: Surgery
DX: T82.858A Stenosis of other vascular prosthetic devices, implants and grafts, initial encounter (principal); I13.2 Hypertensive heart and chronic kidney disease with heart failure and with stage 5 chronic kidney disease, or end stage renal disease; E11.22 Type 2 diabetes mellitus with diabetic chronic kidney disease; N18.6 End stage renal disease; I50.9 Heart failure, unspecified; Z99.2 Dependence on renal dialysis; D64.9 Anemia, unspecified; H54.8 Legal blindness, as defined in USA; Z79.4 Long term (current) use of insulin; Z99.81 Dependence on supplemental oxygen; Z99.3 Dependence on wheelchair
CPT/HCPCS: 82948; 87641; C1725; C1769; C1894; J0583; J1644; J2250; J3010; J7050

== ENCOUNTER → 2017-01-20 | Outpatient (CLI) | payer OTHER | END | disposition home or self-care (01) | LOC: AMB 01-15 12:30 | PROC: 0JPT0XZ Removal of Tunneled Vascular Access Device from Trunk Subcutaneous Tissue and Fascia, Open Approach (ICD-10-PCS; principal; 2017-01-20) | DX: N18.6 End stage renal disease (principal); Z99.2 Dependence on renal dialysis ==

== ENCOUNTER 2017-05-21 11:29 | Day surgery (SDC) | payer OTHER | END 2017-05-21 13:55 | disposition home or self-care (01) | LOC: CATH 11:29 | PROVIDERS: Surgery | PROC: 057Y3ZZ Dilation of Upper Vein, Percutaneous Approach (ICD-10-PCS; principal; 2017-05-21) | DX: T82.858A Stenosis of other vascular prosthetic devices, implants and grafts, initial encounter (principal); I12.0 Hypertensive chronic kidney disease with stage 5 chronic kidney disease or end stage renal disease; E11.22 Type 2 diabetes mellitus with diabetic chronic kidney disease; N18.6 End stage renal disease; Z99.2 Dependence on renal dialysis; I25.10 Atherosclerotic heart disease of native coronary artery without angina pectoris; D64.9 Anemia, unspecified; Z79.4 Long term (current) use of insulin | CPT/HCPCS: 82948; 87641; C1725; C1769; C1894; J0583; J2250; J3010 ==

== ENCOUNTER 2017-07-09 12:25 | Day surgery (SDC) | payer OTHER ==
[~2017-07-09] VITALS: Ht 160 cm; Wt 132.0 kg
[~2017-07-09 12:25] MED LIST changes: +CALCIUM ACETAT667 MG PO; +LYRICA25 MG PO; +METOPROLOL TART25 MG PO
== END 2017-07-09 14:40 | disposition home or self-care (01) ==
LOC: CATH 12:25
PROVIDERS: Surgery
DX: T82.858A Stenosis of other vascular prosthetic devices, implants and grafts, initial encounter (principal); Y83.2 Surgical operation with anastomosis, bypass or graft as the cause of abnormal reaction of the patient, or of later complication, without mention of misadventure at the time of the procedure; I12.0 Hypertensive chronic kidney disease with stage 5 chronic kidney disease or end stage renal disease; N18.6 End stage renal disease; Z99.2 Dependence on renal dialysis; D64.9 Anemia, unspecified; I25.10 Atherosclerotic heart disease of native coronary artery without angina pectoris; H54.8 Legal blindness, as defined in USA
CPT/HCPCS: 82948; 87641; C1725; C1769; C1894; J0583; J2250; J3010

== ENCOUNTER 2017-11-12 07:53 | Inpatient (IN) | payer OTHER ==
[~2017-11-12] VITALS: Ht 160 cm; Wt 151.2 kg
[2017-11-12] VITALS (7 sets, daily range): BP systolic 113–173; BP diastolic 59–89
[~2017-11-12 07:53] MED LIST changes: +ZOLOFT100 MG PO; -ZOLOFT50 MG PO
[2017-11-12 08:23] LABS: HEMATOCRIT 30.1 % (36.0-46.0); HEMOGLOBIN 8.9 G/DL (11.9-15.5); MCH 32.2 PG (29.0-34.0); MCHC 29.6 G/DL (30.0-36.0); MCV 109.1 FL (83-99); NRBC (%) 0.2 /100 WBC (0-0); PLATELET COUNT 83 K/uL (156-360); RBC DIS.WIDTH-CV 19.4 % (11.8-14.6); RED BLOOD COUNT 2.76 M/uL (3.80-5.20); WHITE BLOOD COUNT 8.4 K/uL (4.1-10.2)
[2017-11-12 08:30] LABS: INTER. NORMALIZED RATIO 1.1
[2017-11-12 08:32] LABS: PTT 30.3 SEC (25-37)
[2017-11-12 08:33] LABS: SITE RR
[2017-11-12 08:34] LABS: COMMENTS - BLOOD GASES A+C+; DEVICE 980 VENTILATOR; FI02 100 %; MECHANICAL RATE 20 resp/min; MODE AC-20; PCO2 52 mm Hg (35-45); PEEP 5 CM/H20; TIDAL VOLUME 500 ML; TOTAL RESP RATE 20 resp/min; pH 7.29 (7.35-7.45)
[2017-11-12 08:35] LABS: BASE EXCESS -1.9 mEq/L (-3 to +3); CARBOXY HGB 0 % (0-5); METHEMOGLOBIN 1.1 % (0-1.5); O2 SATURATION (CALCULATED) 94.8 % (95-99); PO2 385 mm Hg (80-100)
[2017-11-12 08:35] LABS: AMYLASE 38 IU/L (1-118); CHLORIDE 104 mEq/L (99-109); SODIUM 142 mEq/L (136-147)
[2017-11-12 09:16] LABS: ABS NEUTROPHIL COUNT 6.7; ANISOCYTOSIS 2+; BAND NEUTROPHILS 0.9 % (0-8.0); BASOPHILS 0.9 %; BURR CELLS 2+; EOSINOPHIL ABS CT 0.4; EOSINOPHILS 4.3 % (0-5.0); LYMPHOCYTES 8.7 % (15.0-45.0); MACROCYTES 1+; MONOCYTES 5.2 % (0-9.0); MYELOCYTES 0.9 %; OVALOCYTES 2+; PLAT.SUFFICIENCY DECREASED; POIKILOCYTOSIS 3+; SEG.NEUTROPHILS 79.1 % (46.0-76.0); SMUDGE CELLS 3.5
[2017-11-12 09:23] LABS: TROP-I INTERPRETATION NEGATIVE; TROPONIN-I 0.01 ng/mL (0.0-0.30)
[2017-11-12 09:41] LABS: QUANTITATIVE HCG < 4.0 MIU/ML
[2017-11-12 09:49] LABS: CREATININE 8.1 MG/DL (0.6-1.3); GFR ESTIMATE (CALCULATED) 6 mL/min/; GLUCOSE 273 mg/dL (70-99); LIPASE 48 U/L (1.0-51.0); SERUM ETHYL ALCOHOL < 10 mg/dL; UREA NITROGEN (BUN) 88 mg/dL (9-23)
[2017-11-12 09:50] LABS: POTASSIUM 6.8 MEQ/L (3.7-5.4)
[2017-11-12 12:06] LABS: COMMENTS - BLOOD GASES NAC+; DEVICE PB 840; FI02 50 %; MECHANICAL RATE 24 resp/min; MODE AC; PEEP 5 CM/H20; SITE RR; TIDAL VOLUME 400 ML; TOTAL RESP RATE 24 resp/min; pH 7.31 (7.35-7.45)
[2017-11-12 12:07] LABS: BICARBONATE 26.2 mEq/L (22-26); CARBOXY HGB 0 % (0-5); METHEMOGLOBIN 0 % (0-1.5); O2 SATURATION (CALCULATED) 89.4 % (95-99); PCO2 52 mm Hg (35-45); PO2 68 mm Hg (80-100)
[2017-11-12 12:08] LABS: BASE EXCESS -0.4 mEq/L (-3 to +3)
[2017-11-12 12:48] LABS: TROP-I INTERPRETATION NEGATIVE; TROPONIN-I 0.02 ng/mL (0.0-0.30)
[2017-11-12 12:54] LABS: ALBUMIN 3.3 G/DL (3.2-4.8); ALKALINE PHOSPHATASE 130 IU/L (3-129); ALT (GPT) 29 IU/L (3-49); AST (GOT) 34 IU/L (2-34); CHLORIDE 105 MEQ/L (99-109); CREATINE KINASE 37 IU/L (1-294); CREATININE 7.9 MG/DL (0.6-1.3); GFR ESTIMATE (CALCULATED) 6 mL/min/; GLUCOSE 255 mg/dL (70-99); HIGH-SENS C-REACTIVE PROTEIN 7.77 MG/DL (0.02-0.20); SODIUM 146 MEQ/L (136-147); TOTAL BILIRUBIN 0.6 MG/DL (0.0-1.0); TOTAL PROTEIN 6.4 G/DL (6.4-8.3); TRIGLYCERIDES 51 MG/DL (Normal: <150); UREA NITROGEN (BUN) 83 mg/dL (9-23)
[2017-11-12 12:59] LABS: POTASSIUM 6.7 MEQ/L (3.7-5.4)
[2017-11-12 18:54] LABS: CHLORIDE 93 MEQ/L (99-109); CREATININE 3.8 MG/DL (0.6-1.3); GFR ESTIMATE (CALCULATED) 14 mL/min/; GLUCOSE 187 mg/dL (70-99); POTASSIUM 4.7 MEQ/L (3.7-5.4); SODIUM 137 MEQ/L (136-147); UREA NITROGEN (BUN) 38 mg/dL (9-23)
[2017-11-12 19:49] LABS: COMMENTS - BLOOD GASES C+; DEVICE VENT; FI02 60 %; MECHANICAL RATE 24 resp/min; MODE A/C; PEEP 5 CM/H20; TIDAL VOLUME 400 ML; TOTAL RESP RATE 24 resp/min
[2017-11-12 19:50] LABS: BICARBONATE 29.2 mEq/L (22-26); METHEMOGLOBIN 0.3 % (0-1.5); PCO2 46 mm Hg (35-45); PO2 165 mm Hg (80-100); pH 7.41 (7.35-7.45)
[2017-11-13 01:55] LABS: COMMENTS - BLOOD GASES C+; DEVICE VENT; FI02 50 %
[2017-11-13 01:56] LABS: BASE EXCESS 1.1 mEq/L (-3 to +3); BICARBONATE 27.1 mEq/L (22-26); CARBOXY HGB 0 % (0-5); MECHANICAL RATE 24 resp/min; METHEMOGLOBIN 0.2 % (0-1.5); MODE A/C; PCO2 49 mm Hg (35-45); PEEP 5 CM/H20; PO2 52 mm Hg (80-100); TIDAL VOLUME 400 ML; TOTAL RESP RATE 24 resp/min; pH 7.35 (7.35-7.45)
[2017-11-13 05:40] LABS: BASOPHIL (%) 0.2 % (0-1); EOSINOPHIL (%) 0.1 % (0-5); HEMATOCRIT 28.5 % (36.0-46.0); IMMATURE GRANULOCYTE (%) 0.9 % (0.0-0.7); LYMPHOCYTE (%) 3.1 % (15-42); LYMPHOCYTE COUNT 0.3 K/uL (1.0-2.8); MCH 31.7 PG (29.0-34.0); MCHC 31.6 G/DL (30.0-36.0); MONOCYTE (%) 0.6 % (3-12); MONOCYTE COUNT 0.1 K/uL (0-0.8); NEUTROPHIL (%) 95.1 % (45-76); NEUTROPHIL COUNT 8.8 K/uL (1.8-6.4); PLATELET COUNT 62 K/uL (156-360); RBC DIS.WIDTH-CV 18.9 % (11.8-14.6); RBC DIS.WIDTH-SD 70.9 % (39-53); RED BLOOD COUNT 2.84 M/uL (3.80-5.20); WHITE BLOOD COUNT 9.3 K/uL (4.1-10.2)
[2017-11-13 05:41] LABS: MCV 100.4 FL (83-99)
[2017-11-13 05:54] LABS: CHLORIDE 96 MEQ/L (99-109); GFR ESTIMATE (CALCULATED) 10 mL/min/; GLUCOSE 258 mg/dL (70-99); MAGNESIUM 1.9 mg/dl (1.3-2.7); PHOSPHORUS 5.1 mg/dL (2.5-4.9); POTASSIUM 4.6 MEQ/L (3.7-5.4); SODIUM 137 MEQ/L (136-147); UREA NITROGEN (BUN) 47 mg/dL (9-23)
[2017-11-13 06:00] LABS: CREATININE 4.8 MG/DL (0.6-1.3)
[2017-11-13 08:02] VITALS: BP 101/55
[2017-11-13 09:02] LABS: BICARBONATE 24.8 mEq/L (22-26); CARBOXY HGB 0 % (0-5); METHEMOGLOBIN 0 % (0-1.5); PCO2 41 mm Hg (35-45); PO2 72 mm Hg (80-100); pH 7.39 (7.35-7.45)
[2017-11-13 09:03] LABS: BASE EXCESS -0.2 mEq/L (-3 to +3); COMMENTS - BLOOD GASES C+; DEVICE 980; FI02 70 %; MECHANICAL RATE 24 resp/min; MODE AC; PEEP 5 CM/H20; SITE ALINE; TIDAL VOLUME 400 ML; TOTAL RESP RATE 25 resp/min
[2017-11-13 12:11] LABS: ALBUMIN 3.1 G/DL (3.2-4.8); ALKALINE PHOSPHATASE 126 IU/L (3-129); ALT (GPT) 25 IU/L (3-49); AST (GOT) 21 IU/L (2-34); DIRECT BILIRUBIN 0.2 mg/dL (0.0-0.3); TOTAL PROTEIN 6.1 G/DL (6.4-8.3)
[2017-11-13 12:11] LABS: VANCOMYCIN, TROUGH 16.6 MCG/ML (10-20)
[2017-11-13 12:12] LABS: TOTAL BILIRUBIN 0.4 MG/DL (0.0-1.0)
[2017-11-13] MEDS ORDERED: ESOMEPRAZOLE MA40 MG PO (14:34)
[2017-11-13] MEDS ORDERED: NOVOLIN,HU100 UNITS/ SC (14:38)
[2017-11-13] MEDS ORDERED: ADVAIR 100/501 DISK IH ×2 (14:39→14:43)
[2017-11-13] MEDS ORDERED: ZOFRAN4 MG PO (14:40)
[2017-11-13] MEDS ORDERED: MIDODRINE HCL5 MG PO (14:41)
[2017-11-13] MEDS ORDERED: HYDROCODON-ACE1 EAC8 PO (14:42)
[2017-11-13] MEDS ORDERED: LOPERAMIDE2 M1 PO (14:44)
[2017-11-13] MEDS ORDERED: MIRCERA SC (14:45)
[2017-11-13] MEDS ORDERED: COMPAZINE5 MG PO (14:46)
[2017-11-13] MEDS ORDERED: VENOFER100 MG/5 M IV (14:47)
[2017-11-13 16:03] VITALS: BP 114/59
[2017-11-13 18:57] LABS: CHLORIDE 97 MEQ/L (99-109); GLUCOSE 165 mg/dL (70-99); SODIUM 139 MEQ/L (136-147)
[2017-11-13 19:11] LABS: CREATININE 2.5 MG/DL (0.6-1.3); GFR ESTIMATE (CALCULATED) 22 mL/min/; POTASSIUM 3.5 MEQ/L (3.7-5.4); UREA NITROGEN (BUN) 19 mg/dL (9-23)
[2017-11-14] VITALS (12 sets, daily range): BP systolic 93–146; BP diastolic 32–96
[2017-11-14 09:25] LABS: BASOPHIL (%) 0.2 % (0-1); BASOPHIL COUNT 0.1 K/uL (0-0.1); EOSINOPHIL (%) 0 % (0-5); IMMATURE GRANULOCYTE (%) 1.3 % (0.0-0.7); LYMPHOCYTE (%) 1.2 % (15-42); LYMPHOCYTE COUNT 0.4 K/uL (1.0-2.8); MONOCYTE (%) 7.3 % (3-12); MONOCYTE COUNT 2.2 K/uL (0-0.8); NEUTROPHIL COUNT 27.5 K/uL (1.8-6.4)
[2017-11-14 09:42] LABS: INTER. NORMALIZED RATIO 1.2
[2017-11-14 09:45] LABS: PTT 30.8 SEC (25-37)
[2017-11-14 09:57] LABS: ALBUMIN 3.9 G/DL (3.2-4.8); ALKALINE PHOSPHATASE 119 IU/L (3-129); ALT (GPT) 27 IU/L (3-49); AST (GOT) 28 IU/L (2-34); CHLORIDE 98 MEQ/L (99-109); HEMATOCRIT 32.5 % (36.0-46.0); HEMOGLOBIN 9.9 G/DL (11.9-15.5); MCH 31.6 PG (29.0-34.0); MCHC 30.5 G/DL (30.0-36.0); MCV 103.8 FL (83-99); NRBC (%) 0.1 /100 WBC (0-0); PLATELET COUNT 119 K/uL (156-360); RBC DIS.WIDTH-CV 19.7 % (11.8-14.6); RBC DIS.WIDTH-SD 73.8 % (39-53); RED BLOOD COUNT 3.13 M/uL (3.80-5.20); SODIUM 141 MEQ/L (136-147); TOTAL PROTEIN 6.8 G/DL (6.4-8.3)
[2017-11-14 09:58] LABS: WHITE BLOOD COUNT 30.6 K/uL (4.1-10.2)
[2017-11-14 09:59] LABS: CREATININE 3.6 MG/DL (0.6-1.3); GFR ESTIMATE (CALCULATED) 15 mL/min/; GLUCOSE 255 mg/dL (70-99); POTASSIUM 4.3 MEQ/L (3.7-5.4); TOTAL BILIRUBIN 0.7 MG/DL (0.0-1.0); UREA NITROGEN (BUN) 30 mg/dL (9-23)
[2017-11-15] VITALS (9 sets, daily range): BP systolic 121–159; BP diastolic 45–78
[2017-11-15 07:58] LABS: BASOPHIL (%) 0.1 % (0-1); EOSINOPHIL (%) 0 % (0-5); HEMOGLOBIN 9.7 G/DL (11.9-15.5); IMMATURE GRANULOCYTE (%) 2.6 % (0.0-0.7); LYMPHOCYTE (%) 1.9 % (15-42); LYMPHOCYTE COUNT 0.4 K/uL (1.0-2.8); MCH 31.3 PG (29.0-34.0); MCHC 30.3 G/DL (30.0-36.0); MCV 103.2 FL (83-99); MONOCYTE (%) 2.8 % (3-12); MONOCYTE COUNT 0.6 K/uL (0-0.8); NEUTROPHIL (%) 92.6 % (45-76); NRBC (%) 0.2 /100 WBC (0-0); PLATELET COUNT 115 K/uL (156-360); RBC DIS.WIDTH-CV 19.8 % (11.8-14.6); RBC DIS.WIDTH-SD 75.7 % (39-53); WHITE BLOOD COUNT 20.6 K/uL (4.1-10.2)
[2017-11-15 08:24] LABS: ALBUMIN 3.7 G/DL (3.2-4.8); ALKALINE PHOSPHATASE 110 IU/L (3-129); ALT (GPT) 44 IU/L (3-49); CHLORIDE 101 MEQ/L (99-109); GLUCOSE 306 mg/dL (70-99); SODIUM 144 MEQ/L (136-147); TOTAL BILIRUBIN 0.6 MG/DL (0.0-1.0); TOTAL PROTEIN 6.5 G/DL (6.4-8.3)
[2017-11-15 08:26] LABS: AST (GOT) 51 IU/L (2-34); CREATININE 4.8 MG/DL (0.6-1.3); GFR ESTIMATE (CALCULATED) 10 mL/min/; POTASSIUM 5.2 MEQ/L (3.7-5.4); UREA NITROGEN (BUN) 46 mg/dL (9-23)
[2017-11-15 11:39] LABS: CREATINE KINASE 26 IU/L (1-294)
== END 2017-11-15 17:27 | DRG 91 ==
LOC: EME 07:53 → 4WEST 09:08 → EDOF 09:08 → ENRESERV 09:09 → 4WEST 10:05
PROVIDERS: Emergency Medicine; Internal Medicine; Internal Medicine Nephrology; Specialist
PROC: B54BZZA Ultrasonography of Right Lower Extremity Veins, Guidance (ICD-10-PCS; principal; 2017-11-12)
PROC: 5A1D70Z Performance of Urinary Filtration, Intermittent, Less than 6 Hours Per Day (ICD-10-PCS; principal; 2017-11-12)
PROC: 06HM33Z Insertion of Infusion Device into Right Femoral Vein, Percutaneous Approach (ICD-10-PCS; principal; 2017-11-12)
PROC: 5A1945Z Respiratory Ventilation, 24-96 Consecutive Hours (ICD-10-PCS; principal; 2017-11-12)
PROC: 02HV33Z Insertion of Infusion Device into Superior Vena Cava, Percutaneous Approach (ICD-10-PCS; 2017-11-14)
PROC: B543ZZA Ultrasonography of Right Jugular Veins, Guidance (ICD-10-PCS; 2017-11-14)
DX: G93.1 Anoxic brain damage, not elsewhere classified (principal); J96.01 Acute respiratory failure with hypoxia; I46.9 Cardiac arrest, cause unspecified; E87.5 Hyperkalemia; Z51.5 Encounter for palliative care; Z66 Do not resuscitate; J44.0 Chronic obstructive pulmonary disease with (acute) lower respiratory infection; J18.9 Pneumonia, unspecified organism; Y95 Nosocomial condition; E87.2 Acidosis; I95.9 Hypotension, unspecified; D69.6 Thrombocytopenia, unspecified; I13.2 Hypertensive heart and chronic kidney disease with heart failure and with stage 5 chronic kidney disease, or end stage renal disease; I50.32 Chronic diastolic (congestive) heart failure; E10.21 Type 1 diabetes mellitus with diabetic nephropathy; E10.22 Type 1 diabetes mellitus with diabetic chronic kidney disease; N18.6 End stage renal disease; E10.40 Type 1 diabetes mellitus with diabetic neuropathy, unspecified; E66.01 Morbid (severe) obesity due to excess calories; G43.909 Migraine, unspecified, not intractable, without status migrainosus; G47.33 Obstructive sleep apnea (adult) (pediatric); E78.5 Hyperlipidemia, unspecified; R59.0 Localized enlarged lymph nodes; G25.3 Myoclonus; Z91.14 Patient's other noncompliance with medication regimen; Z99.2 Dependence on renal dialysis; Z91.15 Patient's noncompliance with renal dialysis; Z99.81 Dependence on supplemental oxygen; Z68.44 Body mass index [BMI] 60.0-69.9, adult; Z79.4 Long term (current) use of insulin
CPT/HCPCS: 36600; 36620; 70450; 71045; 71250; 80047; 80048; 80048 91; 80053; 80076; 80202; 81003; 82150; 82330; 82550; 82550 91; 82803; 82948; 83605; 83690; 83735; 84100; 84145 90; 84478; 84484; 84702; 84999; 85025; 85610; 85730; 86141; 86850; 86900; 86901; 87040; 87070; 87205; 87641; 87801; 93005; 94002; 94003; 94640; 94640 76; 95819; 99202; 99281; 99285; C1751; G0480; J1815; J1953; J2060; J2250; J2405; J2543; J2704; J2930; J3370; J7030; J7040; J7050; P9045